=== PATIENT | male | born 1955 | race Caucasian/White ===

== ENCOUNTER 2021-12-16 12:55 | Emergency (ER) | payer MEDICARE ==
[2021-12-16 13:56] LABS: Absolute Neutrophil Ct (ANC) 4.14 x10^3/uL (1.4-6.9); Basophil (Absolute #) 0.01 x10^3/uL (0-0.4); Eosinophil % 2.1 % (0.00-5.0); Eosinophil (Absolute #) 0.12 x10^3/uL (0-0.5); Hematocrit 38.1 % (42-50); Hemoglobin 12.2 g/dL (12.5-18.0); Lymphocyte (Absolute #) 0.68 x10^3/uL (1.0-4.6); Lymphocytes % 11.6 % (24.0-44.0); Mean Cell Volume 94.8 fL (78-100); Mean Corpuscular Hemoglobin 30.3 pg (26-32); Mean Platelet Volume 10.9 fL (7.5-11.0); Monocyte (Absolute #) 0.84 x10^3/uL (0.0-1.3); Monocytes % 14.4 % (0.0-12.0); Neutrophil % 70.7 % (36.0-66.0); Platelet Count 109 x10^3/uL (150-450); Red Blood Count 4.02 x10^6/uL (4.1-5.6); White Blood Count 5.9 x10^3/uL (4.0-10.5)
[2021-12-16 14:09] LABS: ALBUMIN 3.3 g/dL (3.5-5.0); BILIRUBIN,TOTAL 0.7 mg/dL (0.2-1.3); Calcium 8.4 mg/dL (8.4-10.2); Creatinine 1 6.71 mg/dL (0.66-1.25); EST GLOMERULAR FILTRATION RATE 8.9 ML/MIN; Potassium 3.9 mmol/L (3.5-5.1); Total Protein 5.9 g/dL (6.3-8.2)
--- NOTE | 2021-12-16 14:13 | XRAY ---
Indication: Lower abdomen pressure 2 days. Status post left nephrectomy one week ago. History of polycystic kidney disease. Multiple contiguous axial images obtained through the abdomen and pelvis without contrast. Comparison: None Lung bases demonstrates tiny right base calcified granuloma and minimal left base up some atelectasis/scarring. Heart not enlarged with partially visualized central venous access catheter projecting over the SVC. There has been left total nephrectomy with left midabdomen percutaneous drainage catheter tip in the pelvis and midline cutaneous francisco. Noncontrasted stomach unremarkable. Small bowel loops are fluid distended throughout up to 4.4 cm with synchronous fluid leveling favoring ileus. Normal colonic bowel gas. No free air. Numerous hepatic and right renal cysts consistent with patient's history of polycystic kidney disease. Remaining visualized gallbladder, pancreas, spleen, adrenal glands, and bladder are unremarkable for noncontrast exam. Moderate scattered aortoiliac calcifications without AAA. Osseous structures intact with minimal degenerative changes throughout the thoracolumbar spine. No ventral or inguinal hernias. Impression: 1. Status post left total nephrectomy with percutaneous drainage catheter in situ. Fluid distended small bowel loops with synchronous fluid leveling favors postoperative ileus. 2. Numerous hepatic and right renal cysts consistent with patient's history of polycystic kidney disease. 3. Remaining CT abdomen/pelvis without contrast exam is negative.
[2021-12-16 14:26] VITALS: PULSE 81
[2021-12-16 15:50] LABS: Slide Review 1 YES
[2021-12-16 16:07] VITALS: BP 110/70; O2SAT 95
--- NOTE | 2021-12-16 16:20 | ERPHSYRPT ---
- History of Present Illness Time Seen by Provider: 12/16/21 13:40 Historian: patient, family Exam Limitations: no limitations Patient Subjective Stated Complaint: PT SENT HERE FOR ABD PAIN AND DISTENSION, ABD PAIN,PT HAD LEFT KIDNEY REMOVED A WEEK AGO FOR POLYCYSTIC DISEASE, HE IS UNDER GOING DIALYSIS, AND ONLY HAD AN HOUR TODAY. HAD ABM TODAY Triage Nursing Assessment: PT ALERT, WALKED IN, RESP EASY, SKIN W/D/P, FACE MASK IN PLACE, PERMA CATH TO RIGHT SIDE OF CHEST, ABD DISTENDED AND TIGHT , HYPOACTIVE BS HEARD ON LEFT, ANDREW DRAIN TO LEFT SIDE WITH DRESSING TO ABD HAS YELLOW DRAINAGE TO ANDREW DRAIN Physician History: Patient is a 66-year-old white male who recently underwent a left nephrectomy in [place] approximately a week ago. He was seen in dialysis today and it was noted that he was quite distended he was uncomfortable. His Quinn-Red drain is functioning and he was sent for evaluation of his abdominal distention and pain. Timing/Duration: worse Activities at Onset: other (Status post surgery) Quality: fullness, tightness Abdominal Pain Onset Location: generalized abdomen Pain Radiation: no radiation Severity of Pain-Max: moderate Severity of Pain-Current: moderate Modifying Factors: Improves With: movement, walking Associated Symptoms: weakness Previous symptoms: no prior history Allergies/Adverse Reactions: latex Allergy (Verified 12/16/21 13:32) morphine Allergy (Verified 12/16/21 13:32) Nausea fiberglass/cast Allergy (Intermediate, Uncoded 12/16/21 13:32) states turned leg purple, blue, red, had to put metal on leg and then the cast sutures Allergy (Intermediate, Uncoded 12/16/21 13:32) Blisters anti inflammatories Adverse Reaction (Unknown, Uncoded 12/16/21 13:32) states can not take due to poly cystic kidney and liver disease Home Medications: Clonazepam 0.5 mg [Klonopin 0.5 MG] 0.5 mg PO DAILY 09/19/11 [History] Omeprazole 40 mg PO DAILY 09/19/11 [History] Albuterol Sulfate [Proair Hfa] 2 puffs Q6H PRN PRN 10/02/11 [History] Allopurinol 100 mg [Zyloprim 100 mg] 100 mg PO DAILY 12/16/21 [History] Amlodipine Besylate 5 mg [Norvasc 5 mg] 0 mg PO DAILY 12/16/21 [History] Apixaban [Eliquis] 1 ea BID 12/16/21 [History] Gabapentin [Neurontin ] 100 mg PO BID 12/16/21 [History] Nebivolol HCl [Bystolic] 2.5 mg PO DAILY 12/16/21 [History] Oxycodone HCl/Acetaminophen [Oxycodone-Acetaminophn 7.5-325] 1 each PO TID 12/16/21 [History] Tamsulosin HCl 0.4 mg [Flomax 0.4 MG] 0.4 mg PO DAILY 12/16/21 [History] Hx Influenza Vaccination/Date Given: No Hx Pneumococcal Vaccination/Date Given: No Immunizations Up to Date: Yes Travel Risk - International Travel Have you traveled outside of the country in past 3 weeks: No - Coronavirus Screening Are you exhibiting any of the following symptoms?: No Close contact with a COVID-19 positive Pt in past 14-21 Days: No - Vaccine Status Have you recieved a Covid-19 vaccination: No - Review of Systems Constitutional: No Fever, No Chills Eyes: No Symptoms Ears, Nose, & Throat: No Symptoms Respiratory: No Cough, No Dyspnea Cardiac: No Chest Pain, No Edema, No Syncope Abdominal/Gastrointestinal: Abdominal Pain, Constipation, No Nausea, No Vomiting, No Diarrhea Genitourinary Symptoms: No Symptoms, No Dysuria Musculoskeletal: No Symptoms, No Back Pain, No Neck Pain Skin: No Symptoms, No Rash Neurological: No Dizziness, No Focal Weakness, No Sensory Changes Psychological: No Symptoms Endocrine: No Symptoms All Other Systems: Reviewed and Negative - Past Medical History Pertinent Past Medical History: Yes Neurological History: No Pertinent History ENT History: Other Cardiac History: Other Respiratory History: No Pertinent History Endocrine Medical History: No Pertinent History Musculoskeletal History: No Pertinent History GI Medical History: No Pertinent History History: No Pertinent History, Renal Disease Psycho-Social History: No Pertinent History Male Reproductive Disorders: No Pertinent History Other Medical History: HTN,POLY CYSTIC DISEASE - Past Surgical History Past Surgical History: Yes Neuro Surgical History: Neurological Surgery Cardiac: Cardiac Catheterization Respiratory: No Pertinent History Gastrointestinal: Hernia Repair Genitourinary: No Pertinent History Musculoskeletal: No Pertinent History Male Surgical History: No Pertinent History Other Surgical History: SPINAL CORD SURG,LEFT KIDNEY REMOVED 11/2021. EYE SURG - Social History Smoking Status: Current every day smoker How long have you smoked: 49 yrs Exposure to second hand smoke: Yes Drug Use: none Patient Lives Alone: No - Nursing Vital Signs Nursing Vital Signs: Initial Vital Signs Temperature 98.0 F 12/16/21 13:24 Pulse Rate 91 H 12/16/21 13:24 Respiratory Rate 24 12/16/21 13:24 Blood Pressure 110/74 12/16/21 13:24 O2 Sat by Pulse Oximetry 97 12/16/21 13:24 Pain Scale Pain Intensity 7 - Physical Exam General Appearance: mild distress, alert Eye Exam: PERRL/EOMI, eyes nml inspection Ears, Nose, Throat Exam: normal ENT inspection, pharynx normal, moist mucous membranes Neck Exam: normal inspection, non-tender, supple, full range of motion Respiratory Exam: normal breath sounds, lungs clear, No respiratory distress Cardiovascular Exam: regular rate/rhythm, normal heart sounds Gastrointestinal/Abdomen Exam: soft, No normal bowel sounds (Bowel sounds are decreased but present), No tenderness, No mass Back Exam: normal inspection, normal range of motion, No CVA tenderness, No vertebral tenderness Extremity Exam: normal inspection, normal range of motion, pelvis stable Neurologic Exam: alert, oriented x 3, cooperative, normal mood/affect, nml cerebellar function, sensation nml, No motor deficits Skin Exam: normal color, warm, dry SpO2: 95 - Course Nursing assessment & vital signs reviewed: Yes - CT Exams Abdomen/Pelvis CT Interpretation: Other (CT scan shows postop ileus) Ordered Tests: Active Orders 24 hr Category Date Time Status IV Insertion STAT Care 12/16/21 13:28 Active ABDOMEN AND PELVIS W/0 CONTRAS [CT] Stat Exams 12/16/21 13:29 Completed CBC W DIFF Stat Lab 12/16/21 13:33 Completed CMP Stat Lab 12/16/21 13:33 Completed Lab/Rad Data: Laboratory Result Diagrams 12/16/21 13:33 12/16/21 13:33 Laboratory Results 12/16/21 12/16/21 Range/Units 13:33 13:33 WBC 5.9 (4.0-10.5) x10^3/uL RBC 4.02 L (4.1-5.6) x10^6/uL Hgb 12.2 L (12.5-18.0) g/dL Hct 38.1 L (42-50) % MCV 94.8 (78-100) fL MCH 30.3 (26-32) pg MCHC 32.0 (32-36) g/dL RDW 14.0 (11.5-14.0) % Plt Count 109 L (150-450) x10^3/uL MPV 10.9 (7.5-11.0) fL Gran % 70.7 H (36.0-66.0) % Immature Gran % (Auto) 1.0 H (0.00-0.4) % Nucleat RBC Rel Count 0.0 (0.00-0.1) % Eos # (Auto) 0.12 (0-0.5) x10^3/uL Immature Gran # (Auto) 0.06 H (0.00-0.03) x10^3u/L Absolute Lymphs (auto) 0.68 L (1.0-4.6) x10^3/uL Absolute Monos (auto) 0.84 (0.0-1.3) x10^3/uL Absolute Nucleated RBC 0.00 (0.00-0.01) x10^3u/L Lymphocytes % 11.6 L (24.0-44.0) % Monocytes % 14.4 H (0.0-12.0) % Eosinophils % 2.1 (0.00-5.0) % Basophils % 0.2 (0.0-0.4) % Absolute Granulocytes 4.14 (1.4-6.9) x10^3/uL Basophils # 0.01 (0-0.4) x10^3/uL Sodium 135 L (137-145) mmol/L Potassium 3.9 (3.5-5.1) mmol/L Chloride 98 (98-107) mmol/L Carbon Dioxide 33 H (22-30) mmol/L Anion Gap 9.0 (5-15) MEQ/L BUN 30 H (9-20) mg/dL Creatinine 6.71 H (0.66-1.25) mg/dL Estimated GFR 8.9 ML/MIN Glucose 112 H (74-106) mg/dL Calcium 8.4 (8.4-10.2) mg/dL Total Bilirubin 0.70 (0.2-1.3) mg/dL AST 37 (17-59) U/L ALT 11 (0-50) U/L Alkaline Phosphatase 66 (38-126) U/L Serum Total Protein 5.9 L (6.3-8.2) g/dL Albumin 3.3 L (3.5-5.0) g/dL Slides for Path Review YES - Progress Progress: unchanged - Departure Departure Disposition: Home Clinical Impression: Postoperative ileus Condition: Stable Critical Care Time: No Referrals: KERRY PEDERSON NP [Primary Care Provider] - Follow up/PCP as directed Instructions: Postoperative Ileus (DC) Additional Instructions: Usual fleets suppository as directed
== END 2021-12-16 16:35 | disposition home or self-care (01) ==
LOC: ED 12:55
DX: K91.89 Other postprocedural complications and disorders of digestive system (principal); K56.7 Ileus, unspecified; R14.0 Abdominal distension (gaseous); G89.18 Other acute postprocedural pain; Z90.5 Acquired absence of kidney; I10 Essential (primary) hypertension; Z72.0 Tobacco use; Z79.01 Long term (current) use of anticoagulants; Z79.891 Long term (current) use of opiate analgesic; Z79.899 Other long term (current) drug therapy
CPT/HCPCS: 36000; 36415; 74176; 80053; 85025; 99283